=== PATIENT | female | born 1990 | race Asian ===

== ENCOUNTER 2023-10-19 22:41 | Day surgery (SDC) | payer BC ==
[2023-10-19 23:00] VITALS: BMI 22.9
[2023-10-19] MEDS ORDERED: hydrALAZINE 20 MG/ML VIAL SLOW IVP PRN (23:47)
== END 2023-10-19 23:50 | disposition home or self-care (01) ==
LOC: CSHLD/OP 22:41
PROVIDERS: ATTEND Student in an Organized Health Care Education/Training Program
DX: O26.853 Spotting complicating pregnancy, third trimester (principal); Z3A.37 37 weeks gestation of pregnancy
CPT/HCPCS: 99282

== ENCOUNTER 2023-10-30 03:33 | Inpatient (IN) | payer BC ==
[2023-10-30 04:01] VITALS: BMI 23.1
[2023-10-30] MEDS: Lactated Ringer's 1,000 ML IV SCH ×2 (04:15→04:52)
[2023-10-30] MEDS ORDERED: Promethazine HCl 25 MG/ML VIAL IM PRN ×3 (04:45→12:13)
[2023-10-30] MEDS ORDERED: Oxytocin 30 units/NS 500 ML 500 ML IVPB SCH (04:45)
[2023-10-30] MEDS ORDERED: hydrALAZINE 20 MG/ML VIAL SLOW IVP PRN ×2 (04:45→12:13)
[2023-10-30] MEDS ORDERED: Ibuprofen 800 MG TAB PO PRN (04:45)
[2023-10-30] MEDS ORDERED: Ondansetron PF 4 MG/2 ML Vial IVP PRN ×3 (04:45→12:13)
[2023-10-30 04:48] LABS: Hematocrit 36.8 % (34.9-44.5); Hemoglobin 13.1 g/dL (12.0-15.5); Mean Corpuscular HGB CONC 35.6 g/dL (32.0-36.0); Mean Corpuscular Hemoglobin 34.2 pg (27.0-33.0); Mean Corpuscular Volume 96.1 fl (81.6-98.3); Mean Platelet Volume 10.8 fl (7.4-10.4); Platelet Count 207 10x3/uL (150-450); RBC Distribution Width 12.3 % (11.5-14.5); Red Blood Cell (RBC) Count 3.83 10x6/uL (3.90-5.03)
[2023-10-30] MEDS: fentaNYL/Ropivacaine Epidural 100 ML ONE (04:59)
[2023-10-30] MEDS ORDERED: Moisturizing Cream (Eucerin) 113 GM JAR TOP PRN (05:08)
[2023-10-30] MEDS ORDERED: diphenhydrAMINE 50 MG/ML VIAL IVP PRN (05:08)
[2023-10-30] MEDS ORDERED: Lactated Ringer's 500 ML IV PRN (05:08)
[2023-10-30] MEDS ORDERED: Naloxone HCl 0.4 mg/ml Vial IVP PRN ×2 (05:08)
[2023-10-30] MEDS ORDERED: ePHEDrine Sulfate 50 MG/10 ML VIAL SLOW IVP PRN (05:08)
[2023-10-30] MEDS ORDERED: Acetaminophen 325 MG TAB PO PRN (05:08)
[2023-10-30] MEDS ORDERED: Communication Order-Pharmacy FS SCH (05:15)
[2023-10-30] MEDS ORDERED: fentaNYL 2 mcg/Ropivacaine 0.2% Epidural 100 ML CADD EPIDURAL SCH (05:15)
[2023-10-30 05:17] LABS: Syphilis Antibody Nonreactive (Nonreactive); Syphilis Antibody Index 0.07 S/CO (<1.00 Non-Reactive)
[2023-10-30 05:18] LABS: HBSAg Index 0.18 S/CO (0-0.99); Hep B Surf Ag - L&D Non-Reactive S/CO (NonReactive)
[2023-10-30] MEDS ORDERED: Bupivacaine 0.25% HCL 30 ML VIAL ONE (07:00)
[2023-10-30] MEDS ORDERED: Bisacodyl 10 MG SUPP PR PRN (12:13)
[2023-10-30] MEDS ORDERED: HYDROcodone/Acetaminophen 5/325 mg Tablet PO PRN ×2 (12:13)
[2023-10-30] MEDS ORDERED: Lanolin Ointment 7 GM TUBE TOP PRN (12:13)
[2023-10-30] MEDS ORDERED: Preparation H Ointment 28 GM TUBE PR PRN (12:13)
[2023-10-30] MEDS ORDERED: diphenhydrAMINE 25 MG CAP PO PRN (12:13)
[2023-10-30] MEDS: Oxytocin 30 units/NS 500 ML 500 ML ONE (13:27)
[2023-10-30] MEDS: Ibuprofen 800 MG TAB PO SCH (14:32)
[2023-10-30] MEDS: Benzocaine-Menthol 82.5 ML CAN TOP PRN (14:38)
[2023-10-30] MEDS: Boostrix 0.5 ML (Tdap) VIAL (>/=7 yrs of age) IM ONE (18:04)
[2023-10-30] MEDS: Ferrous Sulfate 325 MG TAB PO SCH (18:05)
[2023-10-30] MEDS: Docusate 100 MG CAP PO SCH (21:33)
[2023-10-31] MEDS: Prenatal Vitamin 1 TAB PO SCH (09:04)
[2023-10-31] MEDS: Milk Of Magnesia 30 ML UDCUP PO PRN (17:42)
[2023-11-01 07:45] VITALS: BP 102/59; TEMP 97.4
[2023-11-01] MEDS: Measles/Mumps/Rubella 10 MCG/0.5 ML VIAL SC ONE (11:26)
== END 2023-11-01 11:40 | disposition home or self-care (01) | DRG 768 ==
LOC: CSHLD 03:33 → CSHPP 11:40
PROVIDERS: ADMIT Student in an Organized Health Care Education/Training Program; ATTEND Student in an Organized Health Care Education/Training Program
PROC: 10E0XZZ Delivery of Products of Conception, External Approach (ICD-10-PCS; principal; 2023-10-30)
PROC: 0DQR0ZZ Repair Anal Sphincter, Open Approach (ICD-10-PCS; 2023-10-30)
PROC: 3E033XZ Introduction of Vasopressor into Peripheral Vein, Percutaneous Approach (ICD-10-PCS; 2023-10-30)
DX: O42.02 Full-term premature rupture of membranes, onset of labor within 24 hours of rupture (principal); Z37.0 Single live birth; O70.20 Third degree perineal laceration during delivery, unspecified; Z3A.39 39 weeks gestation of pregnancy; O69.81X0 Labor and delivery complicated by cord around neck, without compression, not applicable or unspecified
CPT/HCPCS: 51702; 85027; 86780; 86850; 86900; 86901; 87340; 90707; 99285; J0665; J7120